=== PATIENT | male | born 1955 | race Caucasian/White ===

== ENCOUNTER 2024-04-15 12:06 | Outpatient (CLI) | payer MEDICARE ==
[~2024-04-15 12:06] MED LIST: Magnevist 469MG/ML 20 ML VIAL ONE
== END 2024-04-15 12:07 | disposition home or self-care (01) ==
LOC: CSHMRI 12:06
PROVIDERS: ATTEND Urology
DX: C61 Malignant neoplasm of prostate (principal)
CPT/HCPCS: 36415; 72197; 82565